=== PATIENT | female | born 1955 | race Caucasian/White ===

== ENCOUNTER 2018-06-10 22:30 | Emergency (ER) | payer MEDICARE ==
[~2018-06-10] VITALS: Ht 170.2 cm; Wt 86.2 kg
[2018-06-10] MEDS ORDERED: ADENOSINE 6MG/2ML 3 ML ONE (22:38)
[2018-06-10] MEDS ORDERED: SODIUM CHLORIDE 0.9% 1000ML 1,000 ML ONE (22:39)
[2018-06-10] MEDS ORDERED: SODIUM CHLORIDE 0.9% 1000ML 1,000 ML IV ONE (22:45)
[2018-06-10] MEDS ORDERED: ADENOSINE 6 MG/2 ML VIAL IV ONE (22:45)
[2018-06-10 22:49] LABS: BASOPHILS # (AUTO) 0.1 (0.0-0.1); BASOPHILS % 0.8 % (0.0-1.0); EOSINOPHILS # (AUTO) 0.3 (0.0-0.4); EOSINOPHILS % 2.8 % (0.0-6.0); HEMATOCRIT 39.7 % (34.2-44.1); HEMOGLOBIN 12.7 g/dL (12.0-16.0); LYMPHOCYTES # (AUTO) 3.4 (1.0-3.2); LYMPHOCYTES % 31.7 % (18.0-39.1); MEAN CORPUSCULAR HEMOGLOBIN 29.1 pg (28-32); MEAN CORPUSCULAR VOLUME 90.8 fL (81-99); MONOCYTES # (AUTO) 1.2 (0.2-0.8); MONOCYTES % 10.7 % (4.4-11.3); NEUTROPHILS # (AUTO) 5.7 (2.1-6.9); NEUTROPHILS % 52.8 % (38.7-80.0); PLATELET COUNT 239 x10e3/uL (140-360); RED BLOOD COUNT 4.37 x10e6/uL (3.6-5.1); RED CELL DISTRIBUTION WIDTH 14.4 % (11.7-14.4)
[2018-06-10] MEDS ORDERED: LANTUS 3ML100 UNITS/ SQ ×2 (22:58)
[2018-06-10] MEDS ORDERED: WELLBUTRIN SR150 MG PO (22:58)
[2018-06-10] MEDS ORDERED: DIGOXIN250 MCG PO (22:58)
[2018-06-10] MEDS ORDERED: JANUMET 50-1,01 EACH PO (22:58)
[2018-06-10] MEDS ORDERED: NIACIN500 M2 PO (22:58)
[2018-06-10] MEDS ORDERED: NOVOLOG100 UNIT/1 SQ ×2 (22:58)
[2018-06-10] MEDS ORDERED: ASPIRIN EC81 MG PO (22:58)
[2018-06-10] MEDS ORDERED: cbd oil SL (23:02)
[2018-06-10 23:09] LABS: ALANINE AMINOTRANSFERASE 51 IU/L (0-55); ALBUMIN 3.8 g/dL (3.5-5.0); ALBUMIN/GLOBULIN RATIO 0.8 (0.8-2.0); ALKALINE PHOSPHATASE 57 IU/L (40-150); BLOOD UREA NITROGEN 20 mg/dL (7-26); BUN/CREATININE RATIO 25 (6-25); CALCIUM 9.7 mg/dL (8.4-10.2); CARBON DIOXIDE 17 mmol/L (22-29); CHLORIDE 105 mmol/L (98-107); CREATINE KINASE 440 IU/L (29-168); EST GLOMERULAR FILTRATION RATE > 60 ML/MIN (60-); GLUCOSE 208 mg/dL (74-118); SODIUM 138 mmol/L (136-145)
--- NOTE | 2018-06-10 23:58 | Diagnostic Imaging Report ---
EXAM: CHEST SINGLE (PORTABLE), AP 1 view INDICATION: Chest pain COMPARISON: None FINDINGS: LINES/TUBES: None LUNGS: No consolidations or edema. Bibasilar atelectasis. PLEURA: No effusions or pneumothorax. Eventration of the left hemidiaphragm. HEART AND MEDIASTINUM: Normal size and contour. BONES AND SOFT TISSUES: No acute findings. Lower cervical spine surgical hardware. IMPRESSION: Bibasilar atelectasis. Signed by: Dr. Erin Pelayo M.D. on 06/10/2018 11:54 PM
[2018-06-11 00:08] VITALS: BP 134/74
== END 2018-06-11 00:32 | disposition home or self-care (01) ==
LOC: ER 22:30
DX: R06.09 Other forms of dyspnea (principal); R00.2 Palpitations; R07.89 Other chest pain; I47.1 Supraventricular tachycardia; F32.9 Major depressive disorder, single episode, unspecified
CPT/HCPCS: 36415; 71045; 80053; 80162; 82550; 82553; 84484; 85025; 93005; 99284; J0153; J7030